=== PATIENT | female | born 1955 | race American Indian/Alaskan Native ===

== ENCOUNTER 2016-12-29 17:48 | Emergency (ER) | payer MEDICARE ==
[2016-12-29 18:31] LABS: Basophils % (Auto) 0.6 % (0.0-1.8); Eosinophils % (Auto) 4.6 % (0.0-4.3); Hematocrit 39.9 % (30.3-42.9); Hemoglobin 13.3 gm/dl (10.1-14.3); Mean Corpuscular HGB Conc 33 % (30-34); Mean Corpuscular Hemoglobin 29 pg (28-32); Mean Corpuscular Volume 86 fl (79-97); Platelet Count 196 K/mm3 (140-440); Red Blood Count 4.65 M/mm3 (3.65-5.03); Red Cell Distribution Width 14.1 % (13.2-15.2); White Blood Count 6.7 K/mm3 (4.5-11.0)
[2016-12-29 18:31] LABS: Bilirubin,Urine NEG (Negative); Blood,Urine NEG (Negative); Ketones,Urine NEG (Negative); Leukocyte Esterase,Urine NEG (Negative); Mucus,Urine FEW /HPF; Nitrite,Urine NEG (Negative); Protein,Urine <15 mg/dL mg/dL (Negative); Urobilinogen,Urine < 2.0 mg/dL (<2.0); WBC,Urine < 1.0 /HPF (0.0-6.0)
[2016-12-29 18:39] LABS: Alanine Aminotransferase 15 units/L (7-56); BUN/Creatinine Ratio 14.44; Blood Urea Nitrogen 13 mg/dL (7-17); Calcium 9.5 mg/dL (8.4-10.2); Carbon Dioxide 25 mmol/L (22-30); Glucose 102 mg/dL (65-100)
[2016-12-29 18:40] LABS: Albumin 4.1 g/dL (3.9-5); Albumin/Globulin Ratio 1.1 %; Alkaline Phosphatase 76 units/L (35-129); Anion Gap 16 mmol/L; Chloride 101.4 mmol/L (98-107); Lipase 31 units/L (13-60); Potassium 3.5 mmol/L (3.6-5.0); Sodium 139 mmol/L (137-145); Total Protein 7.8 g/dL (6.3-8.2)
[2016-12-30] MEDS ORDERED: MORPHINE IV ONE (00:20)
[2016-12-30] MEDS ORDERED: ZOFRAN IV ONE (00:20)
--- NOTE | 2016-12-30 00:24 | Emergency Department Report ---
ED Abdominal Pain HPI - General Chief Complaint: Abdominal Pain Stated Complaint: ABD PAIN Time Seen by Provider: 12/30/16 00:14 Source: patient Mode of arrival: Ambulatory Limitations: No Limitations - History of Present Illness Initial Comments: 61-year-old female presents to the emergency department complaining of left flank pain. Patient reports the onset of pain at approximately 5 PM this evening. Patient describes a dull pain that radiates to her back. Patient reports a history of kidney stones and states this feels the same. She is complaining of mild nausea, but no vomiting. Patient states she has taken multiple doses of ibuprofen and Tylenol without relief. There are no other complaints. MD Complaint: flank pain -: Sudden, This afternoon Location: L flank Radiation: back Migration to: no migration Severity: severe Severity scale (0 -10): 7 Quality: dull Consistency: constant Improves With: nothing Worsens With: nothing Associated Symptoms: nausea - Related Data Home Medications Medication Instructions Recorded Confirmed Last Taken ALBUTEROL Inhaler [ProAir HFA 2 puff IH QID PRN 03/31/15 04/07/15 04/07/15 06:15 Inhaler] Pantoprazole [Protonix TAB] 40 mg PO QDAY 04/01/15 04/07/15 04/06/15 Previous Rx's Medication Instructions Recorded Last Taken Type Docusate Sodium [Colace CAP] 100 mg PO BID PRN #60 capsule 04/08/15 Unknown Rx Ibuprofen [Motrin 800 MG tab] 800 mg PO Q8HR PRN #60 tablet 04/08/15 Unknown Rx HYDROcodone/APAP 5-325 [[place] 1 each PO Q6HR PRN #20 tablet 12/30/16 Unknown Rx 5/325] Allergies Allergy/AdvReac Type Severity Reaction Status Date / Time No Known Drug Allergies Allergy Unknown Verified 08/01/16 10:12 ED Review of Systems ROS: Stated complaint: ABD PAIN Other details as noted in HPI Comment: All other systems reviewed and negative Gastrointestinal: as per HPI, abdominal pain, nausea ED Past Medical Hx - Past Medical History Previous Medical History?: Yes Hx Hypertension: Yes (past hx, off meds x 3 yrs) Hx CVA: No Hx Heart Attack/AMI: No Hx Congestive Heart Failure: No Hx Diabetes: Yes (BORDERLINE) Hx Deep Vein Thrombosis: No Hx Pulmonary Embolism: No Hx GERD: Yes Hx Liver Disease: No Hx Sickle Cell Disease: No Hx Arthritis: Yes Hx Headaches / Migraines: Yes (migraines) Hx Seizures: No Hx Kidney Stones: Yes Hx Psychiatric Treatment: No Hx Asthma: (occ bronchitis requiring inhaler use) Hx COPD: No Hx Tuberculosis: No Hx Dementia: No Hx HIV: No Additional medical history: Vertigo. - Surgical History Past Surgical History?: Yes Hx Coronary Stent: No Hx Open Heart Surgery: No Hx Pacemaker: No Hx Internal Defibrillator: No Hx Cholecystectomy: No Hx Appendectomy: No Hx Breast Surgery: No Additional Surgical History: KIDNEY STONES REMOVED. HYSTERECTOMY - Family History Family history: no significant - Social History Smoking Status: Never Smoker Substance Use Type: None - Medications Home Medications: Home Medications Medication Instructions Recorded Confirmed Last Taken Type ALBUTEROL Inhaler [ProAir HFA 2 puff IH QID PRN 03/31/15 04/07/15 04/07/15 06: 15 History Inhaler] Pantoprazole [Protonix TAB] 40 mg PO QDAY 04/01/15 04/07/15 04/06/15 History Docusate Sodium [Colace CAP] 100 mg PO BID PRN #60 capsule 04/08/15 Unknown Rx Ibuprofen [Motrin 800 MG tab] 800 mg PO Q8HR PRN #60 tablet 04/08/15 Unknown Rx HYDROcodone/APAP 5-325 [[place] 1 each PO Q6HR PRN #20 tablet 12/30/16 Unknown Rx 5/325] ED Physical Exam - General Limitations: No Limitations General appearance: alert, in distress (mild distress secondary to pain) - Head Head exam: Present: atraumatic, normocephalic - Eye Eye exam: Present: normal appearance, PERRL, EOMI - ENT ENT exam: Present: normal exam, normal orophraynx, mucous membranes moist - Neck Neck exam: Present: normal inspection, full ROM. Absent: tenderness - Respiratory Respiratory exam: Present: normal lung sounds bilaterally. Absent: respiratory distress - Cardiovascular Cardiovascular Exam: Present: regular rate, normal rhythm, normal heart sounds - GI/Abdominal GI/Abdominal exam: Present: soft, normal bowel sounds. Absent: distended, tenderness - Extremities Exam Extremities exam: Present: normal inspection, full ROM. Absent: tenderness - Back Exam Back exam: Present: normal inspection, full ROM. Absent: tenderness, CVA tenderness (R), CVA tenderness (L) - Neurological Exam Neurological exam: Present: alert, oriented X3. Absent: motor sensory deficit - Skin Skin exam: Present: warm, dry, intact ED Course Vital Signs 12/29/16 12/29/16 17:56 23:25 Temperature 98.6 F Pulse Rate 62 58 L Respiratory 18 20 Rate Blood Pressure 148/97 Blood Pressure 154/88 [Right] O2 Sat by Pulse 99 98 Oximetry ED Medical Decision Making - Lab Data Result diagrams: 12/29/16 18:08 12/29/16 18:08 - Radiology Data Radiology results: image reviewed interpreted by me: CT of the abdomen and pelvis shows no evidence of renal stones. Kidneys appear normal. No evidence of vascular abnormalities or bowel abnormalities. - Medical Decision Making Laboratory and imaging results reviewed and discussed with the patient. Patient reports feeling better with medication. Patient will be discharged home at this time to follow up with her primary care physician. - Differential Diagnosis kidney stone, musculoskeletal pain, pyelonephritis Critical care attestation.: If time is entered above; I have spent that time in minutes in the direct care of this critically ill patient, excluding procedure time. ED Disposition Clinical Impression: Acute left flank pain Disposition: DISCHARGED TO HOME OR SELFCARE Is pt being admited?: No Condition: Stable Instructions: Abdominal Pain (ED) Prescriptions: HYDROcodone/APAP 5-325 [[place] 5/325] 1 each PO Q6HR PRN #20 tablet PRN Reason: Pain Referrals: SAM LUDWIG MD [Primary Care Provider] - 3-5 Days Time of Disposition: 01:47
[2016-12-30] MEDS ORDERED: NACL ONE (00:29)
--- NOTE | 2016-12-30 02:00 | Cat Scan Report ---
FINAL REPORT EXAM: CT ABDOMEN PELVIS W CON HISTORY: L flank pain TECHNIQUE: Spiral CT scanning of the abdomen and pelvis after the uneventful administration of IV contrast. Multiplanar reformations. PRIORS: None. FINDINGS: Abdomen: Visualized lung bases grossly unremarkable. No radiopaque gallstones. Liver shows mildly decreased attenuation without focal abnormality. Spleen without significant abnormality. Pancreas without significant abnormality. Kidneys without significant abnormality. Probable subcentimeter, right renal cyst. Adrenal glands without significant abnormality. Pelvis: Diverticular change in the sigmoid colon. Remainder of visualized bowel grossly unremarkable. Appendix within normal limits. No significant free peritoneal fluid or apparent adenopathy. Abdominal aorta non-aneurysmal. Uterus surgically absent. IMPRESSION: 1. Findings compatible with mild fatty infiltration in the liver. 2. Sigmoid colon diverticulosis.
[2016-12-30 05:36] VITALS: BP 154/82
== END 2016-12-30 02:45 | disposition home or self-care (01) ==
LOC: ED 17:48
DX: R10.9 Unspecified abdominal pain (principal); I10 Essential (primary) hypertension; E11.9 Type 2 diabetes mellitus without complications; K21.9 Gastro-esophageal reflux disease without esophagitis; G43.909 Migraine, unspecified, not intractable, without status migrainosus
CPT/HCPCS: 36415; 74177; 80053; 81001; 83690; 85025; 96374; 96375; 99284; J2270; J2405; Q9967

== ENCOUNTER 2019-06-11 08:05 | Day surgery (SDC) | payer MEDICARE ==
[~2019-06-11 08:05] MED LIST: SODIUM CHLORIDE 0.9% 1000 ML 1,000 ML IV SCH
[2019-06-11] MEDS ORDERED: PROPOFOL 200 MG/20 ML VIAL IV ONE ×2 (10:37)
--- NOTE | 2019-06-11 10:38 | Anesthesia Consultation ---
Anesthesia Consult and Med Hx Date of service: 06/11/19 - Airway Anesthetic Teeth Evaluation: Dentures ROM Head & Neck: Adequate Mental/Hyoid Distance: Adequate Mallampati Class: Class II Intubation Access Assessment: Good - Pulmonary Exam CTA: Yes - Cardiac Exam Cardiac Exam: RRR - Pre-Operative Health Status ASA Pre-Surgery Classification: ASA2 Proposed Anesthetic Plan: MAC - Pulmonary Hx Smoking: No Hx Asthma: (occ bronchitis requiring inhaler use) SOB: Yes (SOB climbing stairs) COPD: No Hx Pneumonia: No - Cardiovascular System Hx Hypertension: Yes (past hx, off meds x 3 yrs) Hx Heart Attack/AMI: No Hx Pacemaker: No Hx Internal Defibrillator: No - Central Nervous System Hx Seizures: No Hx Back Pain: Yes Hx Psychiatric Problems: Yes (depression/anxiety) - Gastrointestinal Hx Gastroesophageal Reflux Disease: Yes (mod to severe) - Endocrine Hx Renal Disease: Yes (renal stones) Hx End Stage Renal Disease: No Hx Liver Disease: No - Hematic Hx Anemia: Yes (In past) Hx Sickle Cell Disease: No - Other Systems Hx Substance Use: No Hx Cancer: No Hx Obesity: Yes
--- NOTE | 2019-06-11 10:39 | Anesthesia Day of Surgery ---
Anesthesia Day of Surgery - Day of Surgery Patient Examined: Yes Patient H&P Reviewed: Yes Patient is NPO: Yes
--- NOTE | 2019-06-11 11:15 | Operative Report ---
PROCEDURE: Esophagogastroduodenoscopy with biopsy. INDICATIONS: A 63-year-old -[place] female with underlying history of hypertension, borderline diabetes mellitus who has been having severe GERD symptoms. EGD was done to assess for the problem. Procedure was done after getting informed consent with MAC anesthesia. The patient also gives a prior history of colonoscopy a few years back, which was said to have been unremarkable. DESCRIPTION OF PROCEDURE: The procedure was done with MAC anesthesia done in the GI lab with assistance of the GI lab team, which included Lala ROMO, Kory fiore and with assistance of anesthesia. Instrument was passed through the hypopharynx into the esophagus, which showed moderate erosive esophagitis. Biopsy was done from the distal esophagus. The stomach showed gastritis as well as gastric erosion and gastric nodule in the antrum. Photo documentation and biopsy was done from the gastric antrum and the gastric nodules including from the gastric body to rule out for H. pylori and atrophic gastritis. The pylorus is patent. The duodenum in the first and second portion appeared normal. Biopsy was done from the second part to rule out for possible celiac disease. There was minimal bleeding from the biopsy sites. No complications associated with the procedure. ASSESSMENT: Gastroesophageal reflux disease symptoms, moderate erosive esophagitis, gastritis, gastric erosion, gastric nodules in the antrum, rule out celiac disease. PLAN: Plan is to treat the patient with PPI. Await for the biopsy results. Further treatment adjustment will be according to the biopsy findings. The patient will be asked to follow up in the office in 1-2 weeks' time. JOB# [id number] ARAVIND/SUJATHA SENA
--- NOTE | 2019-06-11 11:17 | Procedure Note ---
Date of procedure: 06/11/19 Pre-op diagnosis: GERD/ Esophagitis Post-op diagnosis: other (Moderate, Erosive Esophagitis/Gastritis/Gastric Erosion/Gastric Nodules/ R/O Celiac Disease) Procedure: EGD with Biopsy Anesthesia: MAC Surgeon: SOFY MARTINEZ Estimated blood loss: minimal Pathology: list Specimen disposition: to lab Condition: stable Disposition: same day (Treat with PPI and Baclofen. Avoid aspirin and NSAID for 4 days; otherwise resume home medication. Follow up in 1 to 2 weeks ([phone]))
[2019-06-11 11:52] VITALS: BP 151/82
--- NOTE | 2019-06-11 15:43 | Post Anesthesia Evaluation ---
- Post Anesthesia Evaluation Patient Participated: Yes Airway Patent: Yes Stable Respiratory Function: Yes Nausea/Vomiting: No Temp > 96.8F: Yes Pain Manageable: Yes Adequeate Hydration: Yes Anesthesia Complications: No Block Receding Appropriately: Not Applicable Patient on Ventilator: No
== END 2019-06-11 11:55 | disposition home or self-care (01) ==
LOC: GIO 08:05
DX: K21.0 Gastro-esophageal reflux disease with esophagitis (principal); K31.89 Other diseases of stomach and duodenum; K29.70 Gastritis, unspecified, without bleeding; G43.909 Migraine, unspecified, not intractable, without status migrainosus; I10 Essential (primary) hypertension; J45.909 Unspecified asthma, uncomplicated; E66.9 Obesity, unspecified; F31.9 Bipolar disorder, unspecified; F41.9 Anxiety disorder, unspecified; M19.90 Unspecified osteoarthritis, unspecified site; E11.9 Type 2 diabetes mellitus without complications; Z88.8 Allergy status to other drugs, medicaments and biological substances; Z79.899 Other long term (current) drug therapy; Z87.442 Personal history of urinary calculi; Z87.440 Personal history of urinary (tract) infections; Z68.35 Body mass index [BMI] 35.0-35.9, adult; Z90.710 Acquired absence of both cervix and uterus; Z98.890 Other specified postprocedural states; Z86.2 Personal history of diseases of the blood and blood-forming organs and certain disorders involving the immune mechanism
CPT/HCPCS: 43239; 82962; 88305; 88342; J2704